=== PATIENT | female | born 1970 | race African-American/Black ===

== ENCOUNTER 2017-09-12 05:47 | Day surgery (SDC) | payer OTHER ==
[2017-09-12] MEDS ORDERED: ROCURONIUM 50 MG INJ (06:29)
[2017-09-12] MEDS ORDERED: PROPOFOL 20 ML (06:29)
[2017-09-12] MEDS ORDERED: GLYCOPYRROLATE 0.4 MG INJ (06:29)
[2017-09-12] MEDS ORDERED: LIDOCAINE 2% (SDV) 5 ML INJ (06:29)
[2017-09-12] MEDS ORDERED: NEOSTIGMINE 3 MG/3 ML SYRINGE (06:29)
[2017-09-12] MEDS ORDERED: HYDROmorphONE (0.2 MG/ML) 10ML SYG IV ×2 (06:30)
[2017-09-12] MEDS ORDERED: morphine (1 MG/ML) 10ML SYRINGE IV ×3 (06:30)
[2017-09-12] MEDS ORDERED: ONDANSETRON 4 MG INJ (06:30)
[2017-09-12] MEDS ORDERED: OXYCODONE/ACETAMINOPHEN (5/325) TAB PO ×2 (06:30)
[2017-09-12] MEDS ORDERED: FENTAnyl 50 MCG/ML VIAL (06:30)
[2017-09-12] MEDS ORDERED: hydrALAzine 20 MG INJ IV (06:30)
[2017-09-12] MEDS ORDERED: DIPHENHYDRAMINE 50 MG INJ IV (06:30)
[2017-09-12] MEDS ORDERED: LABETALOL HCL 20MG INJ IV (06:30)
[2017-09-12] MEDS ORDERED: ATROPINE 1 MG/10 ML SYRINGE IV (06:30)
[2017-09-12] MEDS ORDERED: FENTAnyl 50 MCG/ML VIAL IV (06:30)
[2017-09-12] MEDS ORDERED: MIDAZOLAM 1 MG/ML 2 ML INJ IV (06:30)
[2017-09-12] MEDS ORDERED: EPHEDrine SULFATE 50 MG/5 ML SYG IV (06:30)
[2017-09-12] MEDS ORDERED: MEPERIDINE 25 MG INJ IV (06:30)
[2017-09-12] MEDS ORDERED: MIDAZOLAM 1 MG/ML 2 ML INJ (06:30)
[2017-09-12] MEDS ORDERED: DEXAMETHASONE 4 MG/ML 1 ML INJ (06:30)
[2017-09-12] MEDS ORDERED: SUCCINYLCHOLINE CHLORIDE 100 MG/5 ML SYG IV (07:00)
[2017-09-12] MEDS: EPINEPHrine 1 MG INJ (08:05)
[2017-09-12] MEDS: morphine SULFATE/PF (10 MG/10 ML) INJ (08:35)
[2017-09-12] MEDS: SODIUM CL BACTERIOSTATIC 30 ML INJ (08:35)
[2017-09-12] MEDS ORDERED: HYDROCODONE/APAP (5/325) TAB PO ×2 (09:00)
[2017-09-12] MEDS: HYDROmorphONE (0.2 MG/ML) 10ML SYG IV ×2 (09:06→09:12)
[2017-09-12] MEDS: FENTAnyl 50 MCG/ML VIAL IV (09:06)
[2017-09-12] MEDS: ONDANSETRON 4 MG INJ IV ×2 (09:07→09:30)
== END 2017-09-12 10:35 | disposition home or self-care (01) ==
LOC: SDS 05:47
DX: M23.201 Derangement of unspecified lateral meniscus due to old tear or injury, left knee (principal); M94.262 Chondromalacia, left knee; M65.862 Other synovitis and tenosynovitis, left lower leg; E11.9 Type 2 diabetes mellitus without complications
CPT/HCPCS: 29881